=== PATIENT | male | born 1985 | race Caucasian/White ===

== ENCOUNTER 2018-04-20 19:29 | Observation (INO) | payer BC ==
[2018-04-20] MEDS ORDERED: D5W NS 1,000 ML IV ONE (19:41)
--- NOTE | 2018-04-20 19:46 | EDPHY ---
H & P Stated Complaint: seizure, low Blood Sugar Source: Patient, EMS Exam Limitations: No limitations - Personal History Current Tetanus Diphtheria and Acellular Pertussis (TDAP): Yes - Medical/Surgical History Hx Asthma: No Hx Chronic Respiratory Disease: No Hx Diabetes: Yes Hx Cardiac Disease: No Hx Renal Disease: No Hx Cirrhosis: No Hx Alcoholism: No Hx HIV/AIDS: No Hx Splenectomy or Spleen Trauma: No Other PMH: PMH- DM type 1, Seizures, "brain bleed" - Family History Significant Family History: No pertinent family hx - Social History Smoking Status: Never smoked Alcohol Use: Sober Drug Use: None Time Seen by Provider: 04/20/18 19:42 HPI/ROS: CHIEF COMPLAINT: Hypoglycemia, seizure HISTORY OF PRESENT ILLNESS: The patient is a 32-year-old man whose found him having a seizure on their carpeted floor. The chair tipped over. He is a diabetic with an insulin pump and continuous glucose monitor. She states that he had a seizure once before when his glucose was very low but at that time he fell and hit his head on cement and had a intracranial hemorrhage and had to be in the hospital for a week. It was unclear whether not the at the seizure 1st or hit his head 1st. That was 2 years ago. denies any fevers or recent infections. The patient did vomit during the seizure. She states that lasted for about 30 sec. He has vomited again here in the ER. He was given an amp of D50 by EMS and is glucose at 190. Vital signs otherwise stable. Postictal appearing. When his checked his continuous glucose monitor today during the seizure it was 43 although it tends to lag behind the actual blood level. Severity: Severe Modifying factors: None REVIEW OF SYSTEMS: Constitutional: denies: chills, fever, recent illness, recent injury EENTM: denies: blurred vision, double vision, nose congestion Respiratory: denies: cough, shortness of breath Cardiac: denies: chest pain, irregular heart rate, lightheadedness, palpitations Gastrointestinal/Abdominal: denies: abdominal pain, diarrhea, nausea, vomiting, blood streaked stools Genitourinary: denies: dysuria, frequency, hematuria, pain Musculoskeletal: denies: joint pain, muscle pain Skin: denies: lesions, rash, jaundice, bruising Neurological: denies: headache, numbness, paresthesia, tingling, dizziness, weakness Hematologic/Lymphatic: denies: blood clots, easy bleeding, easy bruising Immunologic/allergic: denies: HIV/AIDS, transplant 10 systems reviewed and negative except as noted EXAM: GENERAL: Postictal, vomiting HEAD: Atraumatic, normocephalic. EYES: Pupils equal round and reactive to light, extraocular movements intact, sclera anicteric, conjunctiva are normal. ENT: TMs normal, nares patent, oropharynx clear without exudates. Moist mucous membranes. NECK: Normal range of motion, supple without lymphadenopathy or JVD. LUNGS: Breath sounds clear to auscultation bilaterally and equal. No wheezes rales or rhonchi. HEART: Regular rate and rhythm without murmurs, rubs or gallops. ABDOMEN: Soft, nontender, normoactive bowel sounds. No guarding, no rebound. No masses appreciated. BACK: No CVA tenderness, no spinal tenderness, step-offs or deformities EXTREMITIES: Normal range of motion, no pitting or edema. No clubbing or cyanosis. NEUROLOGICAL: Slightly confused, Cranial nerves II through XII grossly intact. Slightly slurred speech. 5/5 strength, normal movement in all extremities, normal sensation, normal reflexes PSYCH: Unable to assess SKIN: Warm, dry, normal turgor, no visible rashes or lesions. (Misbah Castro) Constitutional: Initial Vital Signs Temperature (C) 36.8 C 04/20/18 19:33 Heart Rate 80 04/20/18 19:33 Respiratory Rate 16 04/20/18 19:33 Blood Pressure 133/90 H 04/20/18 19:33 O2 Sat (%) 86 L 04/20/18 19:33 O2 Delivery Mode Room Air O2 (L/minute) 2 Allergies/Adverse Reactions: gluten Allergy (Verified 04/21/18 02:45) Home Medications: Medication Instructions Recorded Insulin Pump, Patient Own 1 ea MIS AD 02/10/16 Loratadine [Claritin] 10 mg PO DAILY 04/21/18 Ondansetron Odt [Zofran Odt 4 mg 4 mg PO Q4HRS PRN #30 tab 04/21/18 (*)] Medical Decision Making - Diagnostics Imaging: Discussed imaging studies w/ call worker Radiologist ED Course/Re-evaluation: 930pm: I assumed care of this patient at shift change. He presents after a generalized seizure, most likely secondary to hypoglycemia. Blood sugar prior to arrival was 40. D50 IV given by EMS. He has continued to be postictal after 90 min of observation. His insulin pump is off and he is on D5 normal saline. Blood sugars been 90-100. Drink a small amount of orange juice. On my evaluation, he is post-ictal, mainly resting with eyes closed. 1015pm: more alert, answering some questions, feels dizzy and nauseated with sitting up. 10:45 p.m.: Continues to be postictal. requests that we admit him for observation. I feel that this is a reasonable plan. The postictal period is lasting much longer than usual. Will continue to observe overnight in the hospital. The hospitalist service was consulted for admission. (Neda Farrell) 8:30 p.m. We discussed the patient's CT results. He and his were reassured. He is improving but still feels groggy. He does not feel like drinking orange juice but is trying to push it. He is getting D5 normal saline. We will continue to observe. states that she thinks he overcorrected for carbohydrates because she used almond flour instead of regular flour the muffins she made tonight. 9:10 p.m. patient's glucose is hovering in the high 90s. He is taking a few sips of orange juice but still seems somewhat postictal. We will continue to observe and encourage food. Care transferred to Dr. Neda Farrell at shift change. (Misbah Castro) Differential Diagnosis: Partial list of the Differential diagnosis considered include but were not limited to; hypoglycemia, epilepsy, trauma, seizure and although unlikely based on the history and physical exam, I also considered fever, infection, neck injury. (Misbah Castro) - Data Points Laboratory Results: Laboratory Results 04/20/18 19:36 04/20/18 19:36 Medications Given: Discontinued Medications Acetaminophen (Tylenol) 650 mg PO Q4HRS PRN PRN Reason: Pain, Mild/Fever, Can Take PO Stop: 10/17/18 22:36 Last Admin: 04/21/18 13:23 Dose: 650 mg Dextrose/Sodium Chloride (D5w Ns) 1,000 mls @ 250 mls/hr IV EDNOW ONE PRN Reason: Protocol Stop: 04/20/18 23:40 Last Admin: 04/20/18 20:06 Dose: 1,000 mls Sodium Chloride (Ns) 1,000 mls @ 0 mls/hr IV ONCE ONE; As Directed PRN Reason: Protocol Stop: 04/20/18 22:22 Last Admin: 04/20/18 22:28 Dose: 1,000 mls Sodium Chloride (Ns) 500 mls @ 0 mls/hr IV ONCE ONE PRN Reason: Wide Open Stop: 04/21/18 00:52 Last Admin: 04/21/18 01:21 Dose: 500 mls Insulin Glargine (Lantus Syringe) 10 units SC ONCE ONE Stop: 04/21/18 00:43 Last Admin: 04/21/18 01:25 Dose: 10 units Insulin Human Lispro (Humalog Lispro) 3 unit SC ONCE ONE Stop: 04/21/18 00:43 Last Admin: 04/21/18 01:08 Dose: 3 units Ondansetron HCl (Zofran) 4 mg IVP EDNOW ONE Stop: 04/20/18 22:21 Last Admin: 04/20/18 22:28 Dose: 4 mg Ondansetron HCl (Zofran) 4 mg IVP Q4HRS PRN PRN Reason: Nausea/Vomiting, Can't Take PO Stop: 10/17/18 22:36 Last Admin: 04/21/18 05:17 Dose: 4 mg Ondansetron HCl (Zofran Odt) 4 mg PO Q4HRS PRN PRN Reason: Nausea/Vomiting, Use 1st Stop: 10/17/18 22:36 Last Admin: 04/21/18 13:23 Dose: 4 mg Point of Care Test Results: Chemistry 04/20/18 19:45 POC Sodium 142 mEq/L mEq/L (135-145) POC Potassium 3.4 mEq/L mEq/L (3.3-5.0) POC Chloride 103 mEq/L mEq/L (97-110) POC BUN 18 mg/dL mg/dL (7-23) POC Creatinine 0.8 mg/dL mg/dL (0.7-1.3) POC Glucose 132 mg/dL H mg/dL (70-100) ISTAT H&H 09/29/18 19:45 POC Hgb 14.6 gm/dL gm/dL (13.7-17.5) POC Hct 43 % % (40-51) Departure - Departure Disposition: [facility] Inpatient Acute Clinical Impression: Hypoglycemia, Seizure Condition: Fair
[2018-04-20 19:49] LABS: PLATELET COUNT 197 10^3/uL (150-400)
[2018-04-20] MEDS ORDERED: ONDANSETRON 4 MG/2 ML VIAL IVP ONE (22:20)
[2018-04-20] MEDS ORDERED: NS 1,000 ML IV ONE (22:21)
[2018-04-20] MEDS ORDERED: D50W 25 GM/50 ML VIAL IVP PRN (22:39)
[2018-04-20] MEDS: ACETAMINOPHEN 325 MG TAB PO PRN (23:35)
[2018-04-20] MEDS: ONDANSETRON DISINTEGRATING 4 MG TAB PO PRN (23:36)
[2018-04-20] MEDS: ONDANSETRON 4 MG/2 ML VIAL IVP PRN (23:41)
[2018-04-21] MEDS ORDERED: INSULIN GLARGINE 100 UNITS/ML UNIT SC ONE (00:42)
[2018-04-21] MEDS ORDERED: INSULIN LISPRO 100 UNIT/ML SC ONE (00:42)
[2018-04-21] MEDS ORDERED: NS 500 ML IV ONE (00:51)
--- NOTE | 2018-04-21 01:23 | PDGENHP ---
History and Physical - Chief Complaint Seizure - History of Present Illness 32 yo M w/ T1DM presents after a seizure. History obtained from his as patient is tired and not feeling like talking. She tells me he was in his usual state of good health until this evening. He felt like his BG sugar was low and asked for snack. Shortly after he had a witnessed seizure. EMS was called but seizure resolved prior to his arrival. BG was reported in the 40's at that time and his pump was turned off by EMS. At the time of my evaluation the patient is fatigued but A&Ox3. He has no focal neurologic deficits and CTH in the ED was unremarkable. He does have prior history of single hypoglycemic seizure that was complicated by a TBI after falling onto cement. Case discussed with ED physician Dr. Farrell, records reviewed in EMR. History Information - Allergies/Home Medication List Allergies/Adverse Reactions: No Known Allergies Allergy (Unverified 02/10/16 17:24) Home Medications: Insulin Pump, Patient Own 1 ea [facility] AD 02/10/16 [Last Taken Unknown] I have personally reviewed and updated: family history, medical history - Past Medical History diabetes type 1 - Surgical History Additional surgical history: Unable to provide 2/2 AMS - Family History Additional family history: Unable to provide 2/2 AMS - Social History Smoking Status: Never smoked Alcohol Use: Sober Drug Use: None Review of Systems Review of Systems: ROS: 10pt was reviewed & negative except for what was stated in HPI & below Physical Exam Physical Exam: Temp Pulse Resp BP Pulse Ox 36.9 C 106 H 16 122/63 H 94 04/20/18 23:16 04/20/18 23:16 04/20/18 23:16 04/20/18 23:16 04/20/18 23:16 Constitutional: appears nourished, other Eyes: PERRL, anicteric sclera Ears, Nose, Mouth, Throat: moist mucous membranes, no oral mucosal ulcers Cardiovascular: no murmur, rub, or gallop, tachycardia Respiratory: no respiratory distress, clear to auscultation Gastrointestinal: normoactive bowel sounds, soft, non-tender abdomen Skin: warm, normal color Musculoskeletal: full muscle strength, no muscle tenderness Neurologic: AAOx3, CN II-XII Intact Psychiatric: interacting appropriately, flat affect Lab Data & Imaging Review 04/20/18 19:36 04/20/18 19:36 WBC 7.82 10^3/uL (3.80-9.50) 04/20/18 19:36 RBC 4.54 10^6/uL (4.40-6.38) 04/20/18 19:36 Hgb 14.8 g/dL (13.7-17.5) 04/20/18 19:36 POC Hgb 14.6 gm/dL (13.7-17.5) 04/20/18 19:45 Hct 41.4 % (40.0-51.0) 04/20/18 19:36 POC Hct 43 % (40-51) 04/20/18 19:45 MCV 91.2 fL (81.5-99.8) 04/20/18 19:36 MCH 32.6 pg (27.9-34.1) 04/20/18 19:36 MCHC 35.7 g/dL (32.4-36.7) 04/20/18 19:36 RDW 12.3 % (11.5-15.2) 04/20/18 19:36 Plt Count 197 10^3/uL (150-400) 04/20/18 19:36 MPV 10.5 fL (8.7-11.7) 04/20/18 19:36 Neut % (Auto) 45.4 % (39.3-74.2) 04/20/18 19:36 Lymph % (Auto) 40.3 % (15.0-45.0) 04/20/18 19:36 [place] % (Auto) 9.3 % (4.5-13.0) 04/20/18 19:36 Eos % (Auto) 4.1 % (0.6-7.6) 04/20/18 19:36 Baso % (Auto) 0.6 % (0.3-1.7) 04/20/18 19:36 Nucleat RBC Rel Count 0.0 % (0.0-0.2) 04/20/18 19:36 Absolute Neuts (auto) 3.55 10^3/uL (1.70-6.50) 04/20/18 19:36 Absolute Lymphs (auto) 3.15 10^3/uL (1.00-3.00) H 04/20/18 19:36 Absolute Monos (auto) 0.73 10^3/uL (0.30-0.80) 04/20/18 19:36 Absolute Eos (auto) 0.32 10^3/uL (0.03-0.40) 04/20/18 19:36 Absolute Basos (auto) 0.05 10^3/uL (0.02-0.10) 04/20/18 19:36 Absolute Nucleated RBC 0.00 10^3/uL (0-0.01) 04/20/18 19:36 Immature Gran % 0.3 % (0.0-1.1) 04/20/18 19:36 Immature Gran # 0.02 10^3/uL (0.00-0.10) 04/20/18 19:36 POC Sodium 142 mEq/L (135-145) 04/20/18 19:45 Sodium 139 mEq/L (135-145) 04/20/18 19:36 POC Potassium 3.4 mEq/L (3.3-5.0) 04/20/18 19:45 Potassium 3.5 mEq/L (3.3-5.0) 04/20/18 19:36 POC Chloride 103 mEq/L (97-110) 04/20/18 19:45 Chloride 104 mEq/L (97-110) 04/20/18 19:36 Carbon Dioxide 22 mEq/l (22-31) 04/20/18 19:36 Anion Gap 13 mEq/L (8-16) 04/20/18 19:36 POC BUN 18 mg/dL (7-23) 04/20/18 19:45 BUN 18 mg/dL (7-23) 04/20/18 19:36 Creatinine 0.8 mg/dL (0.7-1.3) 04/20/18 19:36 POC Creatinine 0.8 mg/dL (0.7-1.3) 04/20/18 19:45 Estimated GFR > 60 04/20/18 19:36 Glucose 131 mg/dL (70-100) H 04/20/18 19:36 POC Glucose 281 mg/dL (70-100) H 04/21/18 00:15 Calcium 8.5 mg/dL (8.5-10.4) 04/20/18 19:36 Imaging Review: Imaging Impressions Head CT 04/20/18 19:40 Impression: Normal noncontrast CT of the brain. Results called to Dr. Misbah Castro at the time of the interpretation. Assessment & Plan Assessment: 32 yo M w/ T1DM presents after seizure likely from hypoglycemia. Plan: 1. Seizure - Likely triggered by hypoglycemia as BG was in the 40's at time of EMS arrival. This has happened once before per patient's . Patient remains post-ictal but he is A&Ox3 and CTH in ED without acute changes. - Admit for observation - Seizure precautions 2. T1DM - Hypoglycemic initially but now hyperglycemic(290) after insulin pump has been off for several hours. He is unable to tell me his pump settings currently and is not able to manage his pump safely due to post-ictal state. - Will dose insulin glargine 10 u x1 and lispro 3 u x1, maintain pump off - Lispro SSI ordered - Restart insulin pump once patient able to manage this well - Check BG q4h for now; D50 IV PRN for hypoglycemia 3. Acute encephalopathy - Presumably 2/2 post-ictal state. Patient was in usual state of good health prior to the seizure. CTH unremarkable on admission. - Monitor for improvement in mental status Diet - NPO while post-ictal Code - Full Ppx - Low risk Dispo - Admit under observation status
[2018-04-21 04:47] LABS: PLATELET COUNT 181 10^3/uL (150-400)
[2018-04-21] MEDS: ONDANSETRON 4 MG/2 ML VIAL IVP PRN (05:17)
[2018-04-21] MEDS ORDERED: INSULIN PUMP, PATIENT OWN 1 EA MISC SCH (07:45)
[2018-04-21] MEDS ORDERED: INSULIN LISPRO 100 UNIT/ML SC SCH (08:00)
--- NOTE | 2018-04-21 10:56 | HOSPPROG ---
Hospitalist Progress Note Assessment/Plan: 32 yo M w DM1, insulin pump here w hypoglycemic seizure now hyperglycemic head CT OK home today if tolerating po's see dc summary Subjective: now hyperglycemic. some nausea. no SAMUELS Objective: Vital Signs Temp Pulse Resp BP Pulse Ox 36.5 C 100 16 92/59 L 94 04/21/18 07:23 04/21/18 07:23 04/21/18 07:23 04/21/18 07:23 04/21/18 07:23 Laboratory Results 04/21/18 04:29 04/21/18 04:29 04/20/18 04/21/18 04/22/18 05:59 05:59 05:59 Intake Total 1032 Balance 1032 - Physical Exam Constitutional: no apparent distress, appears nourished Eyes: PERRL, anicteric sclera Ears, Nose, Mouth, Throat: moist mucous membranes, hearing normal Cardiovascular: regular rate and rhythym, no murmur, rub, or gallop Respiratory: no respiratory distress, no rales or rhonchi Gastrointestinal: normoactive bowel sounds, soft, non-tender abdomen Genitourinary: no bladder fullness, No romano in urethra Skin: warm, normal color Musculoskeletal: full muscle strength Neurologic: AAOx3 ICD10 Worksheet Patient Problems: Problems Problem Status Onset Hypoglycemia Acute Seizure Acute Skull fracture Acute Subdural hematoma Acute
[2018-04-21 11:21] VITALS: BP 106/65
--- NOTE | 2018-04-21 11:23 | GDS ---
DISCHARGE DIAGNOSES: 1. Hypoglycemic seizure. 2. Type 1 diabetes with insulin pump. 3. History of subdural hematoma. 4. Nausea. HOSPITAL COURSE: Please see admission history and physical by Dr. Arley Green. The patient presented with a seizure and episode of blood sugars in the 40s. He had a negative noncontrast head CT. He had a seizure previously with subdural hematoma, this was about 2 years ago. The patient's blood sugars teena appropriately. He was off his insulin pump overnight, but he did receive some Lant us. He is not in DKA. Chem-7 this morning confirmed that. He is discharged home with [facility] that he tolerates a diet. /[id number]/MODL
[2018-04-21] MEDS: ONDANSETRON DISINTEGRATING 4 MG TAB PO PRN (13:23)
[2018-04-21] MEDS: ACETAMINOPHEN 325 MG TAB PO PRN (13:23)
== END 2018-04-21 14:47 | disposition home or self-care (01) ==
LOC: EDUNIT# → F3N 23:04
PROVIDERS: ADMIT Student in an Organized Health Care Education/Training Program; ATTEND Internal Medicine
DX: E10.649 Type 1 diabetes mellitus with hypoglycemia without coma (principal); R56.9 Unspecified convulsions; R11.0 Nausea; Z87.820 Personal history of traumatic brain injury; E86.9 Volume depletion, unspecified
CPT/HCPCS: 70450; 96361; 96372; 96374; 99285; G0378; 82435-PO; 82565-PO; 82947-PO; 84132-PO; 84295-PO; 84520-PO; 85014-PO; J1815; J2405